=== PATIENT | female | born 1980 | race Caucasian/White ===

== ENCOUNTER 2019-02-04 00:13 | Emergency (ER) | payer SELFPAY ==
[~2019-02-04] VITALS: Ht 149.9 cm; Wt 58.5 kg
[2019-02-04 00:16] VITALS: Ht 149.9 cm; Wt 58.5 kg
[2019-02-04 00:38] VITALS: BP 147/96
== END 2019-02-04 00:38 | disposition home or self-care (01) ==
LOC: ED 00:13
DX: K02.9 Dental caries, unspecified (principal); K04.7 Periapical abscess without sinus